=== PATIENT | male | born 1960 | race Caucasian/White ===

== ENCOUNTER 2019-09-14 05:57 | Emergency (ER) | payer SELFPAY ==
--- NOTE | 2019-09-14 08:20 | ER Document Report ---
ED Foreign Body - General Chief Complaint: Foreign Body in Ear Stated Complaint: POSS FOREIGN BODY RIGHT EAR Time Seen by Provider: 09/14/19 08:08 Notes: CHIEF COMPLAINT: Foreign body right ear HPI: 58-year-old male presenting to the emergency department complaining of a foreign body in the right ear. He was cleaning his ears with a Q-tip this morning when the tip of the Q-tip broke off in the ear canal. Complains of a foreign body sensation denies bleeding or other discomfort. ROS: See HPI - all other systems were reviewed and are otherwise negative Constitutional: no fever ENT: no runny nose, no sore throat, + FB right ear Integumentary: no rash Allergy: no hives MEDICATIONS: I agree with the patient medications as charted by the RN. ALLERGIES: I agree with the allergies as charted by the RN. PAST MEDICAL HISTORY/PAST SURGICAL HISTORY: Reviewed and agree as charted by RN. SOCIAL HISTORY: Reviewed and agree as charted by RN. FAMILY HISTORY: No significant familial comorbid conditions directly related to patient complaint EXAM: Reviewed vital signs as charted by RN. CONSTITUTIONAL: Alert and oriented and responds appropriately to questions. Well-appearing; well-nourished HEAD: Normocephalic; atraumatic EYES: PERRL; Conjunctivae clear, sclerae non-icteric ENT: normal nose; no rhinorrhea; moist mucous membranes; pharynx without lesions noted, no uvula edema or deviation, no tonsillar hypertrophy, phonation normal. There is a cotton foreign body in the right auditory canal NECK: Supple without meningismus; non-tender; no cervical lymphadenopathy, no masses CARD: Capillary refill less than 3 seconds RESP: Normal chest excursion without splinting or tachypnea ABD/GI: non-distended BACK: The back appears normal EXT: Normal ROM in all joints; no cyanosis, no effusions, no edema SKIN: Normal color for age and race; warm; dry; good turgor NEURO: Moves all extremities equally; Motor and sensory function intact PSYCH: The patient's mood and manner are appropriate. Grooming and personal hygiene are appropriate. MDM: 58-year-old male with a foreign body in the right ear likely the tip of a cotton swab. With a pair of alligator forceps I was able to remove it intact. I was able to visualize the auditory canal and the tympanic membrane after removal and there was no perforation or traumatic injury to the tympanic membrane or auditory canal TRAVEL OUTSIDE OF THE [place] IN LAST 30 DAYS: No - Related Data Allergies/Adverse Reactions: No Known Allergies Allergy (Unverified 10/22/15 18:15) Home Medications: buspar. Paxil Past Medical History - Social History Smoking Status: Never Smoker Chew tobacco use (# tins/day): No Frequency of alcohol use: None Drug Abuse: None Family History: Reviewed & Not Pertinent Patient has suicidal ideation: No Patient has homicidal ideation: No Psychiatric Medical History: Reports: Hx Anxiety, Hx Depression - Immunizations Hx Diphtheria, Pertussis, Tetanus Vaccination: Yes Procedures - Joint Reduction/Fracture Care Right Head Time completed: 08:19 Consent obtained: Yes - Verbal Conscious sedation: No Pre-procedure NV exam: Yes Post-procedure NV exam: Yes Complications: No Notes: 09/14/19 08:20 Cotton foreign body removed from the right auditory canal with alligator forceps. No traumatic injury to the auditory canal or eardrum is noted after removal Discharge - Discharge Clinical Impression: Foreign body of ear, right Qualifiers: Encounter type: initial encounter Qualified Code(s): T16.1XXA - Foreign body in right ear, initial encounter Condition: Good Disposition: HOME, SELF-CARE Instructions: Foreign Body ([facility]) Additional Instructions: Follow-up with primary care provider for reevaluation as needed Referrals: IVÁN GARCIA DO [NO LOCAL MD] - Follow up as needed
[2019-09-14 08:47] VITALS: BP 141/84
== END 2019-09-14 08:50 | disposition home or self-care (01) ==
LOC: ER 05:57
DX: T16.1XXA Foreign body in right ear, initial encounter (principal); X58.XXXA Exposure to other specified factors, initial encounter
CPT/HCPCS: 99282